=== PATIENT | female | born 1995 ===

== ENCOUNTER 2018-10-22 07:44 | Outpatient (CLI) | payer MEDICAID ==
[~2018-10-22] VITALS: Ht 162.6 cm; Wt 65.9 kg
[2018-10-22 08:00] VITALS: BP 110/59
[2018-10-22 08:23] LABS: MICROSCOPIC INDICATED
[2018-10-22 08:34] LABS: AMPHETAMINE SCREEN, URINE Negative (Negative); BARBITURATE SCREEN, URINE Negative (Negative); BENZODIAZEPINE SCREEN, URINE Negative (Negative); CANNABINOID SCREEN, URINE Positive (Negative); COCAINE SCREEN, URINE Negative (Negative); METHADONE SCREEN, URINE Negative (Negative); OPIATE SCREEN, URINE Negative (Negative)
[2018-10-22 08:41] LABS: CULTURE INDICATED? YES
== END 2018-10-22 09:15 | disposition home or self-care (01) ==
LOC: LDOP 07:44
PROVIDERS: ATTEND Obstetrics & Gynecology
DX: O26.892 Other specified pregnancy related conditions, second trimester (principal); R10.9 Unspecified abdominal pain; Z3A.21 21 weeks gestation of pregnancy
CPT/HCPCS: 59025; 80307; 81001; 87086; 99201; G0463

== ENCOUNTER 2018-11-01 00:12 | Outpatient (CLI) | payer MEDICAID ==
[~2018-11-01] VITALS: Ht 162.6 cm; Wt 67.3 kg
[2018-11-01] MEDS ORDERED: PREN-59 PO (00:41)
[2018-11-01 01:47] LABS: AMPHETAMINE SCREEN, URINE Negative (Negative); BARBITURATE SCREEN, URINE Negative (Negative); BENZODIAZEPINE SCREEN, URINE Negative (Negative); CANNABINOID SCREEN, URINE Positive (Negative); COCAINE SCREEN, URINE Negative (Negative); METHADONE SCREEN, URINE Negative (Negative); MICROSCOPIC INDICATED; OPIATE SCREEN, URINE Negative (Negative)
== END 2018-11-01 02:15 | disposition home or self-care (01) ==
LOC: LDOP 00:12
PROVIDERS: ATTEND Obstetrics & Gynecology
DX: O26.892 Other specified pregnancy related conditions, second trimester (principal); M54.9 Dorsalgia, unspecified; R10.9 Unspecified abdominal pain; Z3A.23 23 weeks gestation of pregnancy
CPT/HCPCS: 59025; 80307; 81001; 87086; 99211; G0463